=== PATIENT | male | born 1940 | race Caucasian/White ===

== ENCOUNTER 2019-04-06 08:38 | Observation (INO) ==
--- NOTE | 2019-04-06 08:57 | Emergency Department Note ---
Disposition Clinical Impression: Atrial fibrillation, Cardiac pacemaker in situ, Atrial fibrillation with rapid ventricular response, On anticoagulant therapy, Frail elderly, HLD (hyperlipidemia), HTN (hypertension), History of CVA (cerebrovascular accident), Chest pain Disposition: Admitted As Inpatient Referrals: Andi Souza MD [Primary Care Provider] - Forms: ED Satisfaction Letter Time of Disposition: 11:13 General Adult HPI - General Chief complaint: ED Arrhythmia/Palpitations Stated complaint: Pressure in lungs,Pacemaker put in last week Time Seen by Provider: 04/06/19 08:56 Source: patient Limitations: no limitations - History of Present Illness HPI Narrative: 78-year-old male with a known history of atrial fibrillation reports to the emergency department complaining of high heart rate and palpitations. The patient states he takes Eliquis. He has a long-standing history of atrial fibrillation and describes recent events with bradycardia resulting in syncope, status post cardiology evaluation with pacemaker placement about 2 weeks ago. The patient describes diaphragmatic discomfort bilaterally sometimes with breathing in and out. He also describes a chest pressure-like discomfort and tachycardia. No cough coughing up blood or recent syncope. No leg swelling or pain. The patient has no history of aneurysm CAD prior cardiac stent DVT or PE. There is no history of abdominal pain vomiting diarrhea slurred speech facial drooping or unilateral arm or leg weakness or numbness. No bleeding of any sort . No headache. The patient states he feels an elevated heart rate and is concerned secondary to tachycardia. Pain Scale: 3 - Related Data Home Medications Medication Instructions Recorded Confirmed FLUoxetine HCl [Prozac] 40 mg PO DAILY 01/18/19 03/25/19 Ergocalciferol (VITAMIN D2) 50,000 unit PO FR 01/20/19 03/25/19 [Vitamin D2] Acetaminophen [Tylenol] 500 mg PO Q6HR PRN 03/25/19 03/25/19 Docusate [Colace] 100 mg PO DAILY PRN 03/25/19 03/25/19 Escitalopram [Lexapro] 10 mg PO DAILY 03/25/19 03/25/19 Tamsulosin HCl [Flomax] 0.4 mg PO DAILY 03/25/19 03/25/19 Previous Rx's Medication Instructions Recorded Atorvastatin [Lipitor] 40 mg PO QPM #30 tablet 06/14/15 Diltiazem CD (24hr) [Cardizem CD] 240 mg PO DAILY #0 01/22/19 Apixaban [Eliquis] 5 mg PO BID #0 03/26/19 Allergies Allergy/AdvReac Type Severity Reaction Status Date / Time No Known Allergies Allergy Verified 06/20/17 10:30 All systems ED: reviewed and negative except as stated. Past Medical History - Past Medical History Medical history: Reports: arthritis, atrial fibrillation, CVA, GERD, hyperlipidemia, hypertension Surgical history: Reports: cholecystectomy Psychiatric history: Reports: no psych history - Social History Smoking Status: Never smoker Smokeless Tobacco Status: No Alcohol use: Reports: occasionally Drug use: Reports: none Physical Exam - General Limitations: no limitations General appearance: alert, in no apparent distress - Head Head exam: atraumatic, normocephalic, normal inspection - Eye Eye exam: Present: normal appearance, PERRL, EOMI - ENT ENT exam: normal exam, normal oropharynx, mucous membranes moist - Neck Neck exam: Present: normal inspection, full ROM, trachea midline - Chest Chest inspection: Present: normal inspection, symmetric chest wall rise - Respiratory Respiratory exam: Present: normal lung sounds bilaterally. Absent: respiratory distress, prolonged expiratory phase - Cardiovascular Cardiovascular exam: Present: tachycardia, irregular rhythm - Abdominal Exam Abdominal exam: Present: soft, Non-Tender. Absent: tenderness, distention, guarding, rebound, rigidity, normal bowel sounds - Extremities Exam Extremities exam: Present: normal inspection, full ROM, normal capillary refill. Absent: tenderness, pedal edema, joint swelling, calf tenderness - Expanded Lower Extremity Exam Neurovascular/Tendon exam: Present: normal capillary refill. Absent: motor deficit, sensory deficit, tendon deficit, extremity cold to touch, pallor - Back Exam Back exam: Present: normal inspection, full ROM. Absent: tenderness, CVA tenderness (R), CVA tenderness (L), vertebral tenderness - Neurological Exam Neurological exam: Present: alert, oriented X3, CN II-XII intact. Absent: motor sensory deficit - Psychiatric Psychiatric exam: Present: normal affect, normal mood - Skin Skin exam: Present: warm, dry, intact, normal color Course Vital Signs Temperature 98.5 F 04/06/19 08:43 Pulse Rate 102 04/06/19 08:43 Respiratory Rate 18 04/06/19 08:43 Blood Pressure 116/78 04/06/19 08:43 O2 Sat by Pulse Oximetry 98 04/06/19 08:43 Temperature 98.5 F 04/06/19 08:43 Pulse Rate 76 04/06/19 10:30 Respiratory Rate 14 04/06/19 10:30 Blood Pressure 119/76 04/06/19 10:30 O2 Sat by Pulse Oximetry 99 04/06/19 10:30 Oxygen Delivery Oxygen Delivery Room Air Medical Decision Making - MDM Narrative Medical decision making narrative: The patient describes chest discomfort as well as high heart rates. He has a known history of atrial fibrillation had a recent cardiac pacemaker placed secondary to bradycardia and syncope. The patient reports his last stress test and/or heart catheter within 2010. He has never had a heart stent and denies any significant CAD. He has no history of DVT PE or cancer. He is anticoagulated on Eliquis. On arrival the patient's heart rate was 123 A. fib with RVR, he states he takes Cardizem. Based on the patient's concerns with chest pain, age, history of hyperlipidemia, history of hypertension, no recent stress test or heart catheter reported, A. fib with RVR, recent pacemaker placement secondary to bradycardia/syncope per his report, I thought it would be appropriate to admit the patient for further evaluation. He is highly agreeable. I discussed case with the hospitalist on-call who has accepted the patient to their care. - Lab Data Lab results reviewed: Yes I reviewed the patient's lab results. Result diagrams: 04/06/19 08:59 04/06/19 08:59 Lab Results 04/06/19 04/06/19 04/06/19 Range/Units 08:59 08:59 08:59 WBC 7.2 (4.3-11.1) K/mcL RBC 4.48 (4.19-5.50) M/mcL Hgb 14.6 (12.9-16.9) g/dL Hct 43.9 (37.5-50.1) % MCV 98.0 (83.0-100.0) fL MCH 32.6 (28.0-33.3) pg MCHC 33.3 (31.6-35.5) g/dL RDW 12.5 (11.5-14.5) % Plt Count 222 (140-400) K/mcL MPV 10.3 (9.4-12.4) fL Immature Gran % 0.3 (0-4) % Seg Neutrophils % 78.0 % Lymphocytes % 9.6 % Monocytes % 11.0 % Eosinophils % 0.7 % Basophils % 0.4 % Neutrophils # 5.6 (1.6-8.9) K/mcL Lymphocytes # 0.7 (0.6-4.6) K/mcL Monocytes # 0.8 (0.0-1.3) K/mcL Eosinophils # 0.1 (0.0-0.6) K/mcL Basophils # 0.0 (0.0-0.2) K/mcL PT 13.4 H (9.4-12.1) Seconds INR 1.2 APTT 39.5 H (26.0-36.0) Seconds Sodium 135 L (136-145) mEq/L Potassium 4.5 (3.5-5.1) mEq/L Chloride 100 (98-107) mEq/L Carbon Dioxide 26 (23-29) mEq/L BUN 18 (8-23) mg/dL Creatinine 0.94 (0.70-1.30) mg/dL Est GFR ( Amer) > 60 (> 60) Est GFR (Non-Af Amer) > 60 (> 60) BUN/Creatinine Ratio 19 (6-26) Glucose 158 H (70-105) mg/dL Calculated Osmolality 285 (280-300) Lactic Acid (0.5-2.2) mmol/L Calcium 10.3 (8.6-10.3) mg/dL Troponin I < 0.03 (< 0.04) ng/mL Lipase 18 (11-82) Units/L TSH 1.024 (0.340-5.600) mcIU/mL Free T4 0.91 (0.70-2.00) ng/dl 04/06/19 Range/Units 09:28 WBC (4.3-11.1) K/mcL RBC (4.19-5.50) M/mcL Hgb (12.9-16.9) g/dL Hct (37.5-50.1) % MCV (83.0-100.0) fL MCH (28.0-33.3) pg MCHC (31.6-35.5) g/dL RDW (11.5-14.5) % Plt Count (140-400) K/mcL MPV (9.4-12.4) fL Immature Gran % (0-4) % Seg Neutrophils % % Lymphocytes % % Monocytes % % Eosinophils % % Basophils % % Neutrophils # (1.6-8.9) K/mcL Lymphocytes # (0.6-4.6) K/mcL Monocytes # (0.0-1.3) K/mcL Eosinophils # (0.0-0.6) K/mcL Basophils # (0.0-0.2) K/mcL PT (9.4-12.1) Seconds INR APTT (26.0-36.0) Seconds Sodium (136-145) mEq/L Potassium (3.5-5.1) mEq/L Chloride (98-107) mEq/L Carbon Dioxide (23-29) mEq/L BUN (8-23) mg/dL Creatinine (0.70-1.30) mg/dL Est GFR ( Amer) (> 60) Est GFR (Non-Af Amer) (> 60) BUN/Creatinine Ratio (6-26) Glucose (70-105) mg/dL Calculated Osmolality (280-300) Lactic Acid 1.1 (0.5-2.2) mmol/L Calcium (8.6-10.3) mg/dL Troponin I (< 0.04) ng/mL Lipase (11-82) Units/L TSH (0.340-5.600) mcIU/mL Free T4 (0.70-2.00) ng/dl - Radiology Data Radiology results reviewed: Yes I reviewed the patient's radiology results.
[2019-04-06] MEDS ORDERED: Aspirin 325 MG TABLET PO ONE (09:00)
[2019-04-06 09:08] LABS: Basophils % 0.4 %; Eosinophils # 0.1 K/mcL (0.0-0.6); Eosinophils % 0.7 %; Hematocrit 43.9 % (37.5-50.1); Hemoglobin 14.6 g/dL (12.9-16.9); Immature Granulocytes % 0.3 % (0-4); Lymphocytes # 0.7 K/mcL (0.6-4.6); Lymphocytes % 9.6 %; Mean Corpuscular HGB Conc 33.3 g/dL (31.6-35.5); Mean Corpuscular Hemoglobin 32.6 pg (28.0-33.3); Mean Platelet Volume 10.3 fL (9.4-12.4); Monocytes # 0.8 K/mcL (0.0-1.3); Neutrophils # 5.6 K/mcL (1.6-8.9); Platelet Count 222 K/mcL (140-400); Red Blood Count 4.48 M/mcL (4.19-5.50); Red Cell Distribution Width 12.5 % (11.5-14.5); White Blood Count 7.2 K/mcL (4.3-11.1)
[2019-04-06 09:19] LABS: INR 1.2; Prothrombin Time 13.4 Seconds (9.4-12.1)
[2019-04-06 09:22] LABS: Activated Partial Thrombo Time 39.5 Seconds (26.0-36.0)
[2019-04-06 09:33] LABS: BUN/Creatinine Ratio 19 (6-26); Blood Urea Nitrogen 18 mg/dL (8-23); Calcium 10.3 mg/dL (8.6-10.3); Carbon Dioxide 26 mEq/L (23-29); Chloride 100 mEq/L (98-107); Glucose 158 mg/dL (70-105); Osmolality,Calculated 285 (280-300); Potassium 4.5 mEq/L (3.5-5.1); Sodium 135 mEq/L (136-145); eGFR For African Americans > 60 (> 60); eGFR For Non-African Americans > 60 (> 60)
[2019-04-06 09:34] LABS: Troponin I < 0.03 ng/mL (< 0.04)
[2019-04-06 09:48] LABS: Thyroid Stimulating Hormone 1.024 mcIU/mL (0.340-5.600)
[2019-04-06 10:10] LABS: Lipase 18 Units/L (11-82)
[2019-04-06] MEDS ORDERED: Ondansetron 4 MG/2 ML VIAL IVP PRN (11:59)
[2019-04-06] MEDS ORDERED: *HR* HYDROcodone/Acet 5/325 mg TABLET PO PRN (11:59)
[2019-04-06] MEDS ORDERED: Acetaminophen 325 MG TABLET PO PRN (11:59)
[2019-04-06] MEDS ORDERED: Naloxone 0.4 MG/ML INJ IVP PRN (11:59)
[2019-04-06] MEDS ORDERED: 0.9 % Sodium Chloride 1,000 ML IVC SCH (12:00)
[2019-04-06] MEDS ORDERED: Diltiazem CD (24hr) 240 MG CAPSULE PO SCH (15:30)
--- NOTE | 2019-04-06 15:31 | Internal Med History&Physical ---
Date of Encounter: 04/06/19 Time of Encounter: 15:00 Internal Medicine - H&P: HPI Chief complaint: Chest pain Admitted From: Emergency Dept Plans for Post Hospital Care: Home History of present illness: Mr. Lazar is a 78 year old male with a known past medical history of hypertension, HLD, BPH, depression, chronic a fib on Eliquis for anticoagulation who had a permanent pacemaker placed on 03/25/19, now he presented to ER complaining about sudden onset chest pain started this morning at 3 AM. Patient stated he is feeling sharp pressure like chest pain located sub sternal region, worsening with the inspiration and non-radiating. He denied any shortness of breath/dyspnea on exertion. He still complaining about intermittent chest pain. Past Med Surg Social Fam HX - Past Medical History Medical history: arthritis, atrial fibrillation, CVA, GERD, hyperlipidemia, hypertension Additional medical history: MELANOMA, Pacer Psychiatric history: no psych history - Past Surgical History Surgical History: cholecystectomy, pacemaker/AICD Additional surgical history: left CTR, ROTATOR CUFF REPAIR LEFT SHOULDER 2008,. right RCR. colonoscopy. heart cath. cardioversion - Social History Smoking Status: Never smoker Smokeless Tobacco Status: No Alcohol use: occasionally Drug use: none - Family History Mother Family Member Ethnicity: Non- Living Status: Hx Family Cardiac Disorders: Yes (CHF) Hx Family Respiratory Disorders: Yes Hx Family Cancer: No Hx Family GI Disorders: No Hx Family Endocrine Disorder: No Hx Family Neuromuscular Disorders: No Hx Family Neurologic Disorders: No Hx Family HEENT Disorders: No Hx Family Autoimmune Disorders: No Sister Family Member Ethnicity: Non- Living Status: Still Living Father Family Member Ethnicity: Non- Living Status: Hx Family Cardiac Disorders: Yes (CAD, Pig valve replacement) Hx Family Respiratory Disorders: No Hx Family Cancer: No Hx Family GI Disorders: No Hx Family Endocrine Disorder: No Hx Family Neuromuscular Disorders: Yes (Parkinson's disease) Hx Family Neurologic Disorders: Yes (Parkinsons) Hx Family HEENT Disorders: No Hx Family Autoimmune Disorders: No Internal Medicine - H&P: Meds Atorvastatin [Lipitor] 40 mg PO QPM #30 tablet 06/14/15 [Rx] FLUoxetine HCl [Prozac] 40 mg PO DAILY 01/18/19 [History] Ergocalciferol (VITAMIN D2) [Vitamin D2] 50,000 unit PO FR 01/20/19 [History] Diltiazem CD (24hr) [Cardizem CD] 240 mg PO DAILY #0 01/22/19 [Rx] Acetaminophen [Tylenol] 500 mg PO Q6HR PRN 03/25/19 [History] Docusate [Colace] 100 mg PO DAILY PRN 03/25/19 [History] Escitalopram [Lexapro] 10 mg PO DAILY 03/25/19 [History] Tamsulosin HCl [Flomax] 0.4 mg PO DAILY 03/25/19 [History] Apixaban [Eliquis] 5 mg PO BID #0 03/26/19 [Rx] Allergy/AdvReac Type Severity Reaction Status Date / Time No Known Allergies Allergy Verified 06/20/17 10:30 All Systems PM: A 10-system review of systems was performed and is negative for pertinent findings except as documented above in the HPI. Review of systems: All the systems are reviewed everything is benign except the systems and symptoms I mentioned in the history of present illness - Constitutional Vitals: Temp Pulse Resp BP Pulse Ox 98.5 F 86 18 134/83 99 04/06/19 08:43 04/06/19 13:28 04/06/19 14:18 04/06/19 14:18 04/06/19 13:28 General appearance: Present: cooperative, A&O X 3, no acute distress, answers questions appropriately Exam: a - Head Head exam: Present: atraumatic, normal inspection - Neck Neck exam general surgery: Present: supple - Respiratory Respiratory exam: Present: decreased breath sounds. Absent: rales, respiratory distress, rhonchi, wheezes - Cardiovascular Cardiovascular exam: Present: irregular rhythm, +S1, +S2. Absent: tachycardia Additional comments: Clean incision at Pacemaker placement over Left lateral chest wall region - GI/Abdominal GI/Abdominal exam: Present: normal bowel sounds, soft. Absent: distended, rebound, rigid, tenderness - Extremities Exam Extremities exam: Present: normal inspection. Absent: calf tenderness, tenderness - Back Exam Back exam: Absent: CVA tenderness (L), CVA tenderness (R) - Neurological Exam Neurological exam: Present: alert, oriented X3 - Psychiatric Psychiatric exam: Present: normal affect, normal mood - Skin Skin exam: Absent: rash Internal Med - H&P Results - Labs CBC & Chem 7: 04/06/19 08:59 04/06/19 08:59 Labs: Short CBC 04/06/19 Range/Units 08:59 WBC 7.2 (4.3-11.1) K/mcL Hgb 14.6 (12.9-16.9) g/dL Hct 43.9 (37.5-50.1) % Plt Count 222 (140-400) K/mcL Neutrophils # 5.6 (1.6-8.9) K/mcL BMP 04/06/19 08:59 Sodium 135 L Potassium 4.5 Chloride 100 Carbon Dioxide 26 BUN 18 Creatinine 0.94 Glucose 158 H Calcium 10.3 Cardiac Enzymes 04/06/19 Range/Units 08:59 Troponin I < 0.03 (< 0.04) ng/mL - Impressions ITS Impressions Chest X-Ray 04/06/19 09:21 IMPRESSION: No acute process. D/ / Ezequiel Dye MD / Ezequiel Dye MD Interpreting Provider: Ezequeil Dye MD - Assessment and Plan (1) Chest pain Current Visit: Yes Status: Acute Assessment and plan: Will admit the pt into Tele for observation Will place pt on cardiac rehab nurse check serial troponin so far negative troponin EKG reviewed will start pt on ASA and Nitro PRN pain Will check FLP in AM Will get stress test in AM since pt is high risk for ACS Consulted Card for further eval ordered 2 D Echo too Qualifiers: Chest pain type: unspecified Qualified Code(s): R07.9 - Chest pain, unspecified (2) Pacemaker Current Visit: Yes Status: Acute Assessment and plan: s/p recent pacemaker placement for possible Tachybrady syndrome ordered 2 D Echo for further eval (3) Atrial fibrillation with rapid ventricular response Current Visit: Yes Status: Acute Assessment and plan: rate controlled now when he first presented to ER his HR was in 120's However in 80's Cont on tele resumed home med Cardizem If needed will add BB Metoprolol resumed home anti coag Eliquis (4) HTN (hypertension) Current Visit: Yes Status: Chronic Assessment and plan: Stable blood pressure with current home medications Qualifiers: Hypertension type: essential hypertension Qualified Code(s): I10 - Essential (primary) hypertension (5) HLD (hyperlipidemia) Current Visit: Yes Status: Chronic Assessment and plan: Resumed home medication Qualifiers: Hyperlipidemia type: unspecified Qualified Code(s): E78.5 - Hyperlipidemia, unspecified - Time Spent With Patient Total time spent is greater than 50% in coordination of care (as documented) at patient's floor/unit and/or counseling patient:
[2019-04-06] MEDS ORDERED: Perflutren Lipid Microsphere 1.3 ML in 0.9 % Sodium Chloride 8.7 ML IVP ONE (19:21)
[2019-04-06] MEDS ORDERED: FLUoxetine 20 MG CAPSULE PO SCH (21:29)
[2019-04-06] MEDS: Apixaban 5 MG TABLET PO SCH (21:51)
[2019-04-07 04:37] LABS: BUN/Creatinine Ratio 16 (6-26); Blood Urea Nitrogen 17 mg/dL (8-23); Calcium 9.6 mg/dL (8.6-10.3); Carbon Dioxide 27 mEq/L (23-29); Chloride 104 mEq/L (98-107); Chol/HDL Ratio 3.1 (0-4.9); Cholesterol 154 mg/dL (< 200); Glucose 147 mg/dL (70-105); HDL Cholesterol 50 mg/dL (40-59); LDL Cholesterol,Calculated 90 mg/dL (0-99); Osmolality,Calculated 292 (280-300); Potassium 4.3 mEq/L (3.5-5.1); Sodium 139 mEq/L (136-145); Triglycerides 72 mg/dL (< 150); eGFR For African Americans > 60 (> 60); eGFR For Non-African Americans > 60 (> 60)
[2019-04-07] MEDS ORDERED: Regadenoson 0.4 MG/5 ML SYRINGE IVP ONE (06:29)
[2019-04-07] MEDS ORDERED: FLUoxetine 20 MG CAPSULE PO SCH (09:00)
[2019-04-07] MEDS ORDERED: Diltiazem CD (24hr) 240 MG CAPSULE PO SCH (09:00)
--- NOTE | 2019-04-07 10:27 | Cardiology Consult Note ---
<Tor Romano A - Last Filed: 04/07/19 13:05> Date of Encounter: 04/07/19 Time of Encounter: 10:19 Assessment and Plan (1) Atypical chest pain Status: Acute Single episode atypical chest pain reproducible with breaths; Denies other aggravating factors; alleviated between breaths. Troponins negative x 3. Echo pending Stress test pending Discussed with Dr. Feldman and will review reports with further recs and possibly sign off if no further interventions needed. (2) Atrial fibrillation Status: Chronic Recent pacemaker placed 03/25/19 related to A-fib/bradycardia events; Single chamber -V lead. A-fib on telemetry; ave HR is 82; EKG no ischemic changes. F/u is scheduled 04/30/19 Dr. Rohan Arcos [facility] device clinic. Qualifiers: Atrial fibrillation type: paroxysmal Qualified Code(s): I48.0 - Paroxysmal atrial fibrillation Discussion w patient/family: The assessment and plan as outlined above was discussed with the patient and/or family members who expressed understanding and agreement. All questions were answered. Thank you for involving us in the care of your patient. Please call with any questions. History of Present Illness Consult date: 04/07/19 Consult reason: Chest pain Chief complaint: chest pain History of present illness: Mr. Lazar is a 78 year old male PMH of CVA, HTN, HLD, [place] A-fib on Eliquis, Single chamber -V lead pacemaker placed 03/25/19. Presented with new onset chest pain with breathing; started 04/06/19 at 22:00 after eating pizza for dinner that evening. Denies SOB, palpitations, dizziness, n/t, n/v, falls, blleeding or blood loss. Denies radiation. Alleviated when not breathing. Denies other aggravating factors. Has f/u appt. with Dr. Rohan Arcos 04/30/19 [facility] device clinic. Past Med Surg Social Fam HX - Past Medical History Attestation: Yes The following information was validated with the patient. Source: patient Medical history: arthritis, atrial fibrillation, CVA, GERD, hyperlipidemia, hypertension Additional medical history: MELANOMA, Pacer Psychiatric history: no psych history - Past Surgical History Surgical History: cholecystectomy, pacemaker/AICD Additional surgical history: left CTR, ROTATOR CUFF REPAIR LEFT SHOULDER 2009,. right RCR. colonoscopy. heart cath. cardioversion - Social History Smoking Status: Never smoker Smokeless Tobacco Status: No Alcohol use: occasionally Drug use: none - Family History Mother Family Member Ethnicity: Non- Living Status: Hx Family Cardiac Disorders: Yes (CHF) Hx Family Respiratory Disorders: Yes Hx Family Cancer: No Hx Family GI Disorders: No Hx Family Endocrine Disorder: No Hx Family Neuromuscular Disorders: No Hx Family Neurologic Disorders: No Hx Family HEENT Disorders: No Hx Family Autoimmune Disorders: No Sister Family Member Ethnicity: Non- Living Status: Still Living Father Family Member Ethnicity: Non- Living Status: Hx Family Cardiac Disorders: Yes (CAD, Pig valve replacement) Hx Family Respiratory Disorders: No Hx Family Cancer: No Hx Family GI Disorders: No Hx Family Endocrine Disorder: No Hx Family Neuromuscular Disorders: Yes (Parkinson's disease) Hx Family Neurologic Disorders: Yes (Parkinsons) Hx Family HEENT Disorders: No Hx Family Autoimmune Disorders: No Medications and Allergies Atorvastatin [Lipitor] 40 mg PO QPM #30 tablet 06/14/15 [Rx] FLUoxetine HCl [Prozac] 40 mg PO HS 01/18/19 [History] Ergocalciferol (VITAMIN D2) [Vitamin D2] 50,000 unit PO FR 01/20/19 [History] Escitalopram [Lexapro] 10 mg PO DAILY 03/25/19 [History] Tamsulosin HCl [Flomax] 0.4 mg PO DAILY 03/25/19 [History] Apixaban [Eliquis] 5 mg PO BID #0 03/26/19 [Rx] Diltiazem CD (24hr) [Cardizem CD] 240 mg PO QAM 04/06/19 [History] Zolpidem [Ambien] 10 mg PO HS PRN 04/06/19 [History] Metoprolol [Lopressor] 25 mg PO BID #60 tablet 04/07/19 [Rx] Allergy/AdvReac Type Severity Reaction Status Date / Time No Known Allergies Allergy Verified 04/06/19 21:59 All Systems Review: The remainder of the systems were reviewed and are negative - Cardiovascular Cardiovascular: as per HPI Physical Examination Vital Signs, Last 4 Hours Temp Pulse Resp BP Pulse Ox 04/07/19 06:48 97.9 F 83 18 116/82 98 General: Conversant, No Apparent Distress HEENT: Atraumatic, Normocephaly, Mucus Membranes Moist Neck: No JVD, Normal carotid pulses Cardiac: Reg Rate and Rhythm, Normal S1 and S2, No Murmur Lungs: Normal Breath Sounds, No Wheeze, Rales, Rhonchi Neuro: Alert and responsive, No focal deficits noted Abdomen: Soft, Non-Tender Skin: No rashes noted on visualized skin Musculoskeletal: No Chest Wall Tenderness Extremities: No Clubbing, No Cyanosis, No Edema, Normal Pulses Results 04/06/19 08:59 04/07/19 03:35 Lab Results Laboratory Tests 04/06/19 08:59 Hgb 14.6 Hct 43.9 Laboratory Tests 04/06/19 04/07/19 08:59 03:35 BUN 17 Creatinine 1.04 Est GFR (Non-Af Amer) > 60 Triglycerides 72 Cholesterol 154 LDL Cholesterol, Calc 90 VLDL Cholesterol, Calc 14 HDL Cholesterol 50 Cholesterol/HDL Ratio 3.1 TSH 1.024 Laboratory Tests 04/06/19 04/06/19 04/06/19 08:59 15:29 21:27 Troponin I < 0.03 < 0.03 < 0.03 Active Medications Acetaminophen (Tylenol) 650 mg PO Q6HR PRN PRN Reason: Mild Pain/Fever Stop: 10/06/19 12:00 Hydrocodone Bitart/Acetaminophen (Ennice 5-325 Mg) 1 tab PO Q6HR PRN PRN Reason: Moderate Pain Stop: 10/06/19 12:00 Apixaban (Eliquis) 5 mg PO BID [facility]; Protocol Stop: 10/06/19 21:01 Last Admin: 04/06/19 21:51 Dose: 5 mg Documented by: Atorvastatin Calcium (Lipitor) 40 mg PO [facility] Stop: 10/06/19 21:01 Last Admin: 04/06/19 20:01 Dose: 40 mg Documented by: Diltiazem HCl (Cardizem Cd) 240 mg PO DAILY [facility] Stop: 10/07/19 09:01 Docusate Sodium (Colace) 100 mg PO BID PRN PRN Reason: Constipation Stop: 10/06/19 21:01 Ergocalciferol (Drisdol (50,000 Unit)) 50,000 unit PO FR [facility] Stop: 10/09/19 09:01 Escitalopram Oxalate (Lexapro) 10 mg PO DAILY [facility] Stop: 10/07/19 09:01 Fluoxetine HCl (Prozac) 40 mg PO HS [facility]; Protocol Stop: 10/06/19 21:30 Last Admin: 04/06/19 21:51 Dose: 40 mg Documented by: Metoprolol Tartrate (Lopressor) 25 mg PO BID [facility] Stop: 10/06/19 21:01 Last Admin: 04/06/19 20:01 Dose: 25 mg Documented by: Naloxone HCl (Narcan) 0.4 mg IVP Q2MPRN PRN PRN Reason: SEE COMMENTS Stop: 10/06/19 12:00 Ondansetron HCl (Zofran) 4 mg IVP Q8HR PRN PRN Reason: Nausea And Vomiting Stop: 10/06/19 12:00 Tamsulosin HCl (Flomax) 0.4 mg PO DAILY [facility]; Protocol Stop: 10/07/19 09:01 - Imaging and Cardiology Chest Xray: report reviewed Stress Test: pending Echo: pending - EKG Interpretation EKG results cardiology: no diagnostic ischemia Consult Discharge Plan - Plan Instructions: Metoprolol (By mouth), Chest Pain (DC) Referrals: Rohan Arcos MD [Partnered Physician] - Andi Souza MD [Primary Care Provider] - 04/15/19 1:30 pm Prescriptions: Metoprolol [Lopressor] 25 mg PO BID #60 tablet Prescription Printed <Darrel Feldman A - Last Filed: 04/07/19 21:00> Date of Encounter: 04/07/19 - Attending Attestation I have personally performed a face to face evaluation on this patient. I have reviewed and agree with the documented findings and care plan as documented by the [employer] DEVELOPER. History and Exam by me shows: Patient with history of moderate aortic stenosis admitted with atypical chest discomfort. Agree with stress test and echocardiogram Thanks for the consult, please call with questions. Darrel Feldman MD [facility] Assessment and Plan Discussion w patient/family: The assessment and plan as outlined above was discussed with the patient and/or family members who expressed understanding and agreement. All questions were answered. Thank you for involving us in the care of your patient. Please call with any questions. History of Present Illness History of present illness: Mr. Lazar is a 78 year old male All Systems Review: The remainder of the systems were reviewed and are negative Results 04/06/19 08:59 04/07/19 03:35 Lab Results 04/06/19 04/07/19 21:27 03:35 Sodium 139 Potassium 4.3 Chloride 104 Carbon Dioxide 27 BUN 17 Creatinine 1.04 Glucose 147 H Calcium 9.6 Magnesium 2.0 Troponin I < 0.03
--- NOTE | 2019-04-07 10:27 | Electrocardiograph Report ---
[facility] Test Date: 2019-04-06 Pat Name: Hernan Lazar Department: EXAM21 Room: 3B37 Gender: M [facility]: : 1940 Requested By: Bismark Jones Order Number: [id number] Reading MD: Vince Madrid Measurements Intervals [place] Rate: 123 P: MO: QRS: -47 QRSD: 144 T: 58 QT: 375 QTc: 537 Interpretive Statements Atrial fibrillation RBBB and LAFB Electronically Signed On 04-07-2019 10:25:49 EDT by Vince Madrid
[2019-04-07] MEDS: Apixaban 5 MG TABLET PO SCH (12:10)
[2019-04-07 12:20] VITALS: BP 139/83
--- NOTE | 2019-04-07 13:11 | Discharge Summary ---
- NOTES TO OUTPATIENT PROVIDER Notes to Outpatient Provider: f/u with PCP in one week. f/u with Cardiology Dr. Arcos in 2 weeks. Medication changes: Added Metoprolol 25mg PO BID Date of Encounter: 04/07/19 Time of Encounter: 13:07 - Discharge Diagnosis (1) Chest pain Priority: Primary Status: Acute Qualifiers: Chest pain type: unspecified Qualified Code(s): R07.9 - Chest pain, unspecified (2) Atrial fibrillation with rapid ventricular response Priority: Primary Status: Acute (3) Pacemaker Priority: Secondary Status: Acute (4) HTN (hypertension) Priority: Secondary Status: Chronic Qualifiers: Hypertension type: essential hypertension Qualified Code(s): I10 - Essential (primary) hypertension (5) HLD (hyperlipidemia) Priority: Secondary Status: Chronic Qualifiers: Hyperlipidemia type: unspecified Qualified Code(s): E78.5 - Hyperlipidemia, unspecified Hospital course: Mr. Lazar is a 78 year old male with a known past medical history of hypertension, HLD, BPH, depression, chronic a fib on Eliquis for anticoagulation who had a permanent pacemaker placed on 03/25/19, now he presented to ER complaining about sudden onset chest pain started this morning at 3 AM. Patient stated he is feeling sharp pressure like chest pain located sub sternal region, worsening with the inspiration and non-radiating. He denied any shortness of breath/dyspnea on exertion. He was admitted in the hospital and placed him on conveyor monitor. His his serial troponin came back as negative. His EKG did not show any acute ischemic changes. Since he is high risk for ACS, he did go for nuclear stress test which came back is negative for ischemia/infarction. Regarding his Afib with RVR, I added Metoprolol 25mg PO BID to his current home med Cardizem and his HR is well controlled now. Will d/c him home in stable condition today after Echo results. - Time Spent with Patient Total time spent providing and/or coordinating discharge services: - Discharge Medications Prescriptions: New Metoprolol [Lopressor] 25 mg PO BID #60 tablet Continued Atorvastatin [Lipitor] 40 mg PO QPM #30 tablet FLUoxetine HCl [Prozac] 40 mg PO HS Ergocalciferol (VITAMIN D2) [Vitamin D2] 50,000 unit PO FR Tamsulosin HCl [Flomax] 0.4 mg PO DAILY Escitalopram [Lexapro] 10 mg PO DAILY Apixaban [Eliquis] 5 mg PO BID #0 Diltiazem CD (24hr) [Cardizem CD] 240 mg PO QAM Zolpidem [Ambien] 10 mg PO HS PRN PRN Reason: Sleep Home Medications: Atorvastatin [Lipitor] 40 mg PO QPM #30 tablet 06/14/15 [Rx] FLUoxetine HCl [Prozac] 40 mg PO HS 01/18/19 [History] Ergocalciferol (VITAMIN D2) [Vitamin D2] 50,000 unit PO FR 01/20/19 [History] Escitalopram [Lexapro] 10 mg PO DAILY 03/25/19 [History] Tamsulosin HCl [Flomax] 0.4 mg PO DAILY 03/25/19 [History] Apixaban [Eliquis] 5 mg PO BID #0 03/26/19 [Rx] Diltiazem CD (24hr) [Cardizem CD] 240 mg PO QAM 04/06/19 [History] Zolpidem [Ambien] 10 mg PO HS PRN 04/06/19 [History] Metoprolol [Lopressor] 25 mg PO BID #60 tablet 04/07/19 [Rx] Allergies/Adverse Reactions: Allergy/AdvReac Type Severity Reaction Status Date / Time No Known Allergies Allergy Verified 04/06/19 21:59 Date of admission: 04/06/19 13:55 Primary care physician: Andi Souza MD Consults: 04/06/19 15:07 Consult to Cardiology [CONS] Routine Comment: Consulting Provider: [facility] [place] Reason for Consult: Recent pacemaker placement.. now c/o pleurisy CP Time Notified: 15:07 Call Completed: Yes - Constitutional Vitals: Temp Pulse Resp BP Pulse Ox 97.7 F 99 18 139/83 97 04/07/19 12:19 04/07/19 12:19 04/07/19 12:19 04/07/19 12:04/07/19 12:19 General appearance: Present: cooperative, A&O X 3, no acute distress, answers questions appropriately Exam: Gen: Alert, awake, Oriented to time,place and person Chest: Diminished breath sounds B/L, No wheezing, No crackles, No rales Heart: S1S2+ Afib No murmurs Abd: Soft, NT, BS +, No organomegaly Ext: No edema, pulses are palpable, No calf tenderness Neuro : No acute focal neuro deficits noticed Skin: No rash. - Patient Status Disposition: Home, Self-Care Condition: Good Overall status at discharge: patient is back to baseline - Discharge Instructions Follow Up With: Andi Souza MD [Primary Care Provider] - 04/15/19 1:30 pm Rohan Arcos MD [Partnered Physician] - - Diet and Activity Activity: increase activity as tolerated Diet: low salt diet
--- NOTE | 2019-04-07 21:28 | Electrocardiograph Report ---
[address] [address] Test Date: 2019-04-07 Pat Name: Hernan Lazar Department: 113 Room: 3B37 Gender: M License And Permit Specialist: : [id number] Requested By: Alise Murphy Order Number: [id number] Reading MD: Rosalie Arriaga Measurements Intervals [place] Rate: 78 P: [place]: 0 QRS: 206 QRSD: 159 T: 31 QT: 408 QTc: 441 Interpretive Statements [employer]LL[employer] ELECTRONIC [employer]EN[employer]IC[employer] PACEM[employer]ER Electronically Signed On 04-07-2019 21:26:37 EDT by Rosalie Arriaga
[2019-04-09] MEDS ORDERED: Ergocalciferol (VIT D2) 50,000 UNIT (1.25MG) CAP PO SCH (09:00)
== END 2019-04-07 15:25 | disposition home or self-care (01) ==
LOC: 3BNU 08:38 → EMEROOARM 08:38 → SUATTDRO 13:55 → 3BNU 14:19
PROVIDERS: ADMIT Internal Medicine; ATTEND Family Medicine